=== PATIENT | male | born 1950 | race Caucasian/White ===

== ENCOUNTER 2020-10-27 17:37 | Emergency (ER) | payer OTHER ==
[~2020-10-27] VITALS: Wt 81.6 kg
[2020-10-27 18:07] LABS: BASO # 0.1 10*3/uL (0.0-0.1); BASO % 0.5 % (0.0-1.0); EOS % 0.1 % (1.0-4.0); HEMATOCRIT 51.9 % (42.0-52.0); LYMPH # 1.4 10*3/uL (1.3-4.4); LYMPH % 9.1 % (27.0-41.0); MEAN CELL VOLUME 87.5 fl (80.0-94.0); MEAN CORPUSCULAR HGB 28.5 pg (27.0-31.0); MEAN CORPUSCULAR HGB CONC 32.6 g/dl (33.0-37.0); MEAN PLATELET VOLUME 9.9 fl (9.6-12.3); MONO # 0.9 10*3/uL (0.1-1.0); MONO % 6.2 % (3.0-9.0); NEUT # 12.6 10*3/uL (2.3-7.9); NEUT % 83.8 % (47.0-73.0); PLATELET COUNT AUTOMATED 347 10*3/uL (130-400); RED BLOOD COUNT 5.93 10*6/uL (4.50-5.90); RED CELL DISTRI WIDTH 13.3 % (0-14.5)
[2020-10-27 18:17] LABS: INTERNATIONAL NORM RATIO 0.9 (2.0-3.5)
[2020-10-27 18:24] LABS: ALBUMIN 4.2 gm/dl (3.1-4.5); ALKALINE PHOSPHATASE 129 U/L (45-117); BUN 16 mg/dl (7-24); CHLORIDE 107 mmol/L (98-107); CREATININE 1.35 mg/dL (0.70-1.30); SGOT/AST 78 IU/L (3-35); SGPT/ALT 124 U/L (12-78); SODIUM 141 mmol/L (136-145); TOTAL PROTEIN 7.7 gm/dL (6.4-8.2)
[2020-10-27 18:36] LABS: TROPONIN I < 0.015 ng/ml (<0.045)
[2020-10-27 18:49] LABS: LIPASE 34014 U/L (73-393)
== END 2020-10-27 23:32 | disposition short-term general hospital (02) ==
LOC: ED 17:37
PROVIDERS: Physician Assistant
DX: K85.10 Biliary acute pancreatitis without necrosis or infection (principal); R11.10 Vomiting, unspecified; Z88.0 Allergy status to penicillin

== ENCOUNTER 2023-01-25 22:06 | Emergency (ER) | payer MEDICARE ==
[~2023-01-25] VITALS: Wt 74.8 kg
== END 2023-01-26 00:03 | disposition home or self-care (01) ==
LOC: ED 22:06
DX: T67.9XXA Effect of heat and light, unspecified, initial encounter (principal); R50.9 Fever, unspecified; Z88.0 Allergy status to penicillin; Z20.822 Contact with and (suspected) exposure to COVID-19; X58.XXXA Exposure to other specified factors, initial encounter; Y93.89 Activity, other specified; Y92.89 Other specified places as the place of occurrence of the external cause; Y99.8 Other external cause status